=== PATIENT | male | born 1995 | race Caucasian/White ===

== ENCOUNTER 2016-04-11 23:40 | Emergency (ER) | payer OTHER ==
[2016-04-12] MEDS ORDERED: KETOROLAC 30 MG/ML VIAL (J1885) As Ordered ONE (00:48)
[2016-04-12] MEDS ORDERED: ONDANSETRON 4MG/2ML VIAL (J2405) As Ordered ONE (00:48)
[2016-04-12 01:31] LABS: BASO # 0.2 K/mm3 (0.0-0.2); BASO % 1.3 % (0.0-1.0); EOS # 0.3 K/mm3 (0.0-0.50); EOS % 2.1 % (0.0-3.0); LARGE UNSTAINED CELL # 0.2 K/mm3 (0.0-0.4); LARGE UNSTAINED CELL % 1.3 % (0.0-4.0); LYMPH # 2.4 K/mm3 (1.5-6.5); LYMPH % 16.8 % (24.0-44.0); MEAN CORPUSCULAR HEMOGLOBIN 29.9 pg (27.0-33.0); MEAN CORPUSCULAR HGB CONC 33.7 g/dl (32.0-36.5); MEAN CORPUSCULAR VOLUME 88.8 fl (80.0-96.0); MONO # 0.7 K/mm3 (0.0-0.8); MONO % 5.3 % (0.0-5.0); NEUTROPHILS # 9.8 K/mm3 (1.8-7.7); NEUTROPHILS % 73.3 % (36.0-66.0); PLATELET COUNT, AUTOMATED 276 k/mm3 (150-450); RED CELL DISTRIBUTION WIDTH 14.1 % (11.5-14.5); WHITE BLOOD COUNT 13.4 K/mm3 (4.0-10.0)
[2016-04-12 01:37] LABS: ALBUMIN 3.9 GM/DL (3.2-5.2); ALBUMIN/GLOBULIN RATIO 0.85 (1.00-1.93); ALKALINE PHOSPHATASE 92 U/L (45-117); ALT/SGPT 102 U/L (12-78); AMYLASE 56 U/L (25-115); ANION GAP 8 MEQ/L (8-16); AST/SGOT 41 U/L (15-37); BILIRUBIN,DIRECT 0.1 MG/DL (0.0-0.2); BILIRUBIN,TOTAL 0.5 MG/DL (0.2-1.0); BLOOD UREA NITROGEN 12 MG/DL (7-18); CALCIUM LEVEL 9.2 MG/DL (8.5-10.1); CARBON DIOXIDE LEVEL 29 MEQ/L (21-32); CHLORIDE LEVEL 100 MEQ/L (98-107); CREATININE FOR GFR 0.89 MG/DL (0.70-1.30); GLUCOSE, FASTING 92 MG/DL (70-105); POTASSIUM SERUM 3.9 MEQ/L (3.5-5.1); SODIUM LEVEL 137 MEQ/L (136-145); TOTAL PROTEIN 8.5 GM/DL (6.4-8.2)
--- NOTE | 2016-04-12 01:40 | REPUSA ---
CLINICAL HISTORY: Elevated liver enzymes. TECHNIQUE: Realtime sonographic images were obtained in multiple projections. COMMENTS: The liver is demonstrates increased echogenicity compatible with fatty infiltration. No discrete hepatic mass is seen. There is no intra or extrahepatic biliary ductal dilatation. CBD measures 2.9 mm. The gallbladder is physiologically distended without evidence of calculi. The gallbladder wall is not thickened and ther e is no pericholecystic fluid. There is no abdominal ascites. The right kidney measures 10.6x5.1x4.8 cm, free of hydronephrosis, calculi, cysts or masses. IMPRESSION: Fatty liver. No acute pathology. Thank you for your kind referral of this patient.
[2016-04-12] MEDS ORDERED: traMADol 50 MG TAB As Ordered ONE (02:05)
--- NOTE | 2016-04-12 02:12 | EDDOCDS ---
Physician Documentation [facility] Name: Michi Landers Age: 21 yrs Sex: Male : 1995 Arrival Date: 04/11/2016 Time: 23:40 Bed I5 / M5 Private MD: NO PRIMARY PHYSICIAN, . Disposition: 04/12/16 02:00 Discharged to Home/Self Care. Impression: Nausea with vomiting, unspecified, Upper abdominal pain, unspecified, Acute pharyngitis, unspecified. - Condition is Stable. - Discharge Instructions: Nausea and Vomiting, Pharyngitis, Abdominal Pain, Adult, [id number]. - Prescriptions for ZOFRAN ODT 4 mg Oral - dissolve 1 tablet by ORAL route 3-4 times daily As needed do not chew, do not swallow whole; 20 tablet. - Medication Reconciliation, Local Pharmacy Hours form. - Follow up: Emergency Department; When: As needed; Reason: Worsening of conditions. [facility]; When: Call to arrange an appointment; Reason: Recheck today's complaints, Continuance of care, To establish care. - Problem is new. - Symptoms have improved. Historical: - Allergies: No known drug Allergies; - Home Meds: 1. none - PMHx: none; - PSHx: none; - Social history: Smoking status: Patient states was never smoker of tobacco. No barriers to communication noted, The patient speaks fluent [place]. - Family history: Not pertinent. - : The pt / caregiver states he / she is not on anticoagulants. Home medication list is obtained from the patient. - Exposure Risk Screening:: None identified. Vital Signs: 04/11 23:42 BP 164 / 95; Pulse 77; Resp 18 S; Temp 98.7; Pulse Ox 100% on R/A; Weight 113.4 kg / dd6 250 lbs (R); Height 5 ft. 6 in. (167.64 cm) (R); 04/12 01:48 BP 134 / 84; Pulse 84; Resp 20; Temp 98.9(O); Pulse Ox 98% on R/A; Pain 0/10; tm5 04/11 23:42 Body Mass Index 40.35 (113.40 kg, 167.64 cm) dd6 MDM: 04/11 23:50 Strep Screen, Nursing ordered. dt4 04/12 00:27 GATS (NEGATIVE STREP SCREEN) Ordered. EDMS 00:37 IV Saline Lock ordered. dt4 00:37 NS 0.9% 1000 ml IV at bolus once ordered. dt4 00:37 Ondansetron 4 mg IVP once ordered. dt4 00:37 ketorolac 30 mg IVP once ordered. dt4 00:37 Undress patient appropriately for examination ordered. dt4 00:38 Amylase Ordered. EDMS 00:38 Basic Metabolic Profile Ordered. EDMS 00:38 CBC with Diff Ordered. EDMS 00:38 Lipase Ordered. EDMS 00:38 Liver Profile Ordered. EDMS 00:38 NOTHING BY MOUTH+DIET ordered. EDMS 00:39 US Abd Limited Ordered. EDMS 01:32 Financial registration complete. hs2 02:03 [facility] [place] Payment Agreement was scanned into [employer] and attached to record. hs2 02:04 traMADol 50 mg PO once ordered. dt4 Administered Medications: 01:04 Drug: NS 0.9% 1000 ml [sodium chloride 0.9 % intravenous solution] Route: IV; Rate: tm5 bolus; Site: right antecubital; 02:04 Follow up: IV Status: Completed infusion; IV Intake: 1000ml tm5 01:04 Drug: Ondansetron 4 mg Route: IVP; Site: right antecubital; tm5 01:30 Follow up: Response: Nausea is resolved; No Adverse Reaction tm5 01:05 Drug: ketorolac 30 mg [ketorolac 30 mg/mL (1 mL) injection solution (1 mL)] Route: IVP; tm5 Site: right antecubital; 01:30 Follow up: Response: No Adverse Reaction; Pain is decreased tm5 02:09 Drug: traMADol 50 mg [tramadol 50 mg tablet (1 tabs)] Route: PO; tm5 02:09 Follow up: Response: Confirmed pt not driving.; Pt left department before re-evaluation tm5 is appropriate Signatures: Dispatcher [employer] EDMS Chelsie Bloom PA-C PA-C dt4 Mavis FloresRN RN af2 Maryellen Tan, Reg Reg hs2 Joan Rodriguez RN RN tm5 The chart was reviewed and I authenticate all verbal orders and agree with the evaluation and treatment provided.Attachments: 02:03 [facility] Payment Agreement hs2 MTDD
--- NOTE | 2016-04-12 02:12 | EDDOCDS ---
Nurse's Notes [facility] Name: Michi Landers Age: 21 yrs Sex: Male : 1995 Arrival Date: 04/11/2016 Time: 23:40 Bed I5 / M5 Private MD: NO PRIMARY PHYSICIAN, . Diagnosis: Nausea with vomiting, unspecified;Upper abdominal pain, unspecified;Acute pharyngitis, unspecified Presentation: 04/11 23:43 Presenting complaint: Patient states: woke up with stomach ache and vomiting, +blood. af2 states he feels sore, throat is sore x 1 day. Adult Sepsis Screening: The patient does not have new or worsening altered mentation. Patient's respiratory rate is less than 22. Systolic blood pressure is greater than 100. Patient has a qSOFA score of 0- Negative Sepsis Screen. Suicide/Homicide risk assessment- the patient denies having any suicidal and/or homicidal ideations and does not present with any other emotional, behavioral or mental health complaints. Status: Patient is not a service agent or dependent. Transition of care: patient was not received from another setting of care. 23:43 Acuity: LISSETTE Level 4 af2 23:43 Method Of Arrival: Walkin/Carried/Asstd af2 23:45 Acuity level changed due to complexity of care. af2 23:45 Acuity: LISSETTE Level 3 af2 Triage Assessment: 23:44 General: Appears in no apparent distress, Behavior is cooperative. Pain: Location: af2 abdomen Pain currently is 7 out of 10 on a pain scale. Pt Declines HIV testing. GI: Reports lower abdominal pain, upper abd pain, nausea, vomiting. Derm: Skin is normal. Historical: - Allergies: No known drug Allergies; - Home Meds: 1. none - PMHx: none; - PSHx: none; - Social history: Smoking status: Patient states was never smoker of tobacco. No barriers to communication noted, The patient speaks fluent Romansh. - Family history: Not pertinent. - : The pt / caregiver states he / she is not on anticoagulants. Home medication list is obtained from the patient. - Exposure Risk Screening:: None identified. Screenin/11 01:05 Screening information is obtained from the patient. Fall risk: No risks identified. tm5 Assistance ADL's: requires no assistance with activities of daily living. Abuse/DV Screen: The patient / caregiver reports he/she is: not in a situation that causes fear, pain or injury. Nutritional screening: No deficits noted. Advance Directives: There is no active DNR order. home support is adequate. Assessment: 01:05 General: Appears in no apparent distress, Behavior is appropriate for age, cooperative. tm5 Pain: Location: right upper quadrant and left upper quadrant Pain currently is 6 out of 10 on a pain scale. Quality of pain is described as crampy. Neurological: Level of Consciousness is awake, alert, Oriented to person, place, time. Respiratory: Airway is patent Respiratory effort is even, unlabored, Respiratory pattern is regular, symmetrical, Breath sounds are clear bilaterally. GI: Abdomen is obese, Bowel sounds present X 4 quads. Abd is soft and non tender X 4 quads. Reports nausea, vomiting. : No deficits noted. Derm: Skin is pink, warm & dry. normal. 01:43 General: Appears in no apparent distress, comfortable, Behavior is appropriate for age, jmb cooperative. Neurological: Level of Consciousness is awake, alert, obeys commands, Oriented to person, place, time, Speech is normal, Facial symmetry appears normal, Facial symmetry: tongue is midline. Respiratory: Airway is patent Respiratory effort is even, unlabored, Respiratory pattern is regular, symmetrical. 02:09 Reassessment: Patient appears in no apparent distress at this time. Patient states tm5 feeling better. Patient states symptoms have improved. Vital Signs: 04/11 23:42 BP 164 / 95; Pulse 77; Resp 18 S; Temp 98.7; Pulse Ox 100% on R/A; Weight 113.4 kg (R); dd6 Height 5 ft. 6 in. (167.64 cm) (R); 04/12 01:48 BP 134 / 84; Pulse 84; Resp 20; Temp 98.9(O); Pulse Ox 98% on R/A; Pain 0/10; tm5 04/11 23:42 Body Mass Index 40.35 (113.40 kg, 167.64 cm) dd6 Vitals: 04/11 23:42 Log In Time: April 11, 2016 at 23:40. dd6 ED Course: 23:41 Patient visited by Zay Vo, GALLO. dd6 23:41 NO PRIMARY PHYSICIAN, . is Private Physician. dd6 23:41 Patient moved to Waiting dd6 23:42 Patient moved to Pre RCE dd6 23:44 Triage Initiated af2 23:45 Patient visited by Mavis Flores RN. af2 0111 00:08 Patient moved to Triage 2 af2 00:23 Chelsie Bloom [facility] dt4 00:23 Francesca Ashraf MD is Attending Physician. dt4 00:23 Patient visited by Chelsie Bloom PA-C. dt4 00:28 GATS (NEGATIVE STREP SCREEN) Sent. cjh 00:38 Patient moved to I5 / M5 cjh 00:58 Patient moved to Ultrasound dmg 01:03 Patient visited by Joan Rodriguez,DAMASO. tm5 01:03 Inserted saline lock: 20 gauge in right antecubital area and blood collected. The tm5 patient tolerated the procedure well. Labs drawn. (by ED staff). Sent per order to lab. 01:03 Amylase Sent. tm5 01:03 Basic Metabolic Profile Sent. tm5 01:03 CBC with Diff Sent. tm5 01:04 Lipase Sent. tm5 01:04 Liver Profile Sent. tm5 01:05 The patient / caregiver is instructed regarding the plan of care and ED course. tm5 01:15 Patient moved to I5 / M5 dmg 01:44 Patient visited by Blu Gonzalez,DAMASO. b 01:48 Patient visited by Joan Rodriguez,DAMASO. tm5 01:59 Patient name changed from Rubinsky\S\\S\Anshul\S\ to Rubinsky\S\ \S\Anshul. EDMS 02:00 [facility] is Referral Physician. dt4 02:03 [facility] Payment Agreement was scanned into [employer] and attached to record. hs2 02:09 Discontinued lock intact, bleeding controlled, pressure dressing applied, No tm5 redness/swelling at site. No procedures done that require assistance. Administered Medications: 01:04 Drug: NS 0.9% 1000 ml [sodium chloride 0.9 % intravenous solution] Route: IV; Rate: tm5 bolus; Site: right antecubital; 02:04 Follow up: IV Status: Completed infusion; IV Intake: 1000ml tm5 01:04 Drug: Ondansetron 4 mg Route: IVP; Site: right antecubital; tm5 01:30 Follow up: Response: Nausea is resolved; No Adverse Reaction tm5 01:05 Drug: ketorolac 30 mg [ketorolac 30 mg/mL (1 mL) injection solution (1 mL)] Route: IVP; tm5 Site: right antecubital; 01:30 Follow up: Response: No Adverse Reaction; Pain is decreased tm5 02:09 Drug: traMADol 50 mg [tramadol 50 mg tablet (1 tabs)] Route: PO; tm5 02:09 Follow up: Response: Confirmed pt not driving.; Pt left department before re-evaluation tm5 is appropriate Intake: 02:04 IV: 1000.00ml; Total: 1000.00ml. tm5 Order Results: Lab Order: Amylase; SPEC'04/12/16 01:01 Test: AMYLASE; Value: 56; Range: 25-115; Units: U/L; Status: F Lab Order: Basic Metabolic Profile; SPEC'04/12/16 01:01 Test: GLUCOSE, FASTING; Value: 92; Range: 70-105; Units: MG/DL; Status: F Test: BLOOD UREA NITROGEN; Value: 12; Range: 7-18; Units: MG/DL; Status: F Test: CREATININE FOR GFR; Value: 0.89; Range: 0.70-1.30; Units: MG/DL; Status: F Test: SODIUM LEVEL; Value: 137; Range: 136-145; Units: MEQ/L; Status: F Test: POTASSIUM SERUM; Value: 3.9; Range: 3.5-5.1; Units: MEQ/L; Status: F Test: CHLORIDE LEVEL; Value: 100; Range: 98-107; Units: MEQ/L; Status: F Test: CARBON DIOXIDE LEVEL; Value: 29; Range: 21-32; Units: MEQ/L; Status: F Test: ANION GAP; Value: 8; Range: 8-16; Units: MEQ/L; Status: F Test: CALCIUM LEVEL; Value: 9.2; Range: 8.5-10.1; Units: MG/DL; Status: F Lab Order: CBC with Diff; SPEC'04/12/16 01:01 Test: WHITE BLOOD COUNT; Value: 13.4; Range: 4.0-10.0; Abnormal: Above high normal; Units: K/mm3; Status: F Test: RED BLOOD COUNT; Value: 5.26; Range: 4.30-6.10; Units: M/mm3; Status: F Test: HEMOGLOBIN; Value: 15.7; Range: 14.0-18.0; Units: g/dl; Status: F Test: HEMATOCRIT; Value: 46.7; Range: 42.0-52.0; Units: %; Status: F Test: MEAN CORPUSCULAR VOLUME; Value: 88.8; Range: 80.0-96.0; Units: fl; Status: F Test: MEAN CORPUSCULAR HEMOGLOBIN; Value: 29.9; Range: 27.0-33.0; Units: pg; Status: F Test: MEAN CORPUSCULAR HGB CONC; Value: 33.7; Range: 32.0-36.5; Units: g/dl; Status: F Test: RED CELL DISTRIBUTION WIDTH; Value: 14.1; Range: 11.5-14.5; Units: %; Status: F Test: PLATELET COUNT, AUTOMATED; Value: 276; Range: 150-450; Units: k/mm3; Status: F Test: NEUTROPHILS %; Value: 73.3; Range: 36.0-66.0; Abnormal: Above high normal; Units: %; Status: F Test: LYMPH %; Value: 16.8; Range: 24.0-44.0; Abnormal: Below low normal; Units: %; Status: F Test: MONO %; Value: 5.3; Range: 0.0-5.0; Abnormal: Above high normal; Units: %; Status: F Test: EOS %; Value: 2.1; Range: 0.0-3.0; Units: %; Status: F Test: BASO %; Value: 1.3; Range: 0.0-1.0; Abnormal: Above high normal; Units: %; Status: F Test: LARGE UNSTAINED CELL %; Value: 1.3; Range: 0.0-4.0; Units: %; Status: F Test: NEUTROPHILS #; Value: 9.8; Range: 1.8-7.7; Abnormal: Above high normal; Units: K/mm3; Status: F Test: LYMPH #; Value: 2.4; Range: 1.5-6.5; Units: K/mm3; Status: F Test: MONO #; Value: 0.7; Range: 0.0-0.8; Units: K/mm3; Status: F Test: EOS #; Value: 0.3; Range: 0.0-0.50; Units: K/mm3; Status: F Test: BASO #; Value: 0.2; Range: 0.0-0.2; Units: K/mm3; Status: F Test: LARGE UNSTAINED CELL #; Value: 0.2; Range: 0.0-0.4; Units: K/mm3; Status: F Lab Order: Lipase; SPEC'M 04/12/16 01:01 Test: LIPASE; Value: 81; Range: 73-393; Units: U/L; Status: F Lab Order: Liver Profile; SPEC'M 04/12/16 01:01 Test: AST/SGOT; Value: 41; Range: 15-37; Abnormal: Above high normal; Units: U/L; Status: F Test: ALT/SGPT; Value: 102; Range: 12-78; Abnormal: Above high normal; Units: U/L; Status: F Test: ALKALINE PHOSPHATASE; Value: 92; Range: 45-117; Units: U/L; Status: F Test: BILIRUBIN,TOTAL; Value: 0.5; Range: 0.2-1.0; Units: MG/DL; Status: F Test: BILIRUBIN,DIRECT; Value: 0.1; Range: 0.0-0.2; Units: MG/DL; Status: F Test: TOTAL PROTEIN; Value: 8.5; Range: 6.4-8.2; Abnormal: Above high normal; Units: GM/DL; Status: F Test: ALBUMIN; Value: 3.9; Range: 3.2-5.2; Units: GM/DL; Status: F Test: ALBUMIN/GLOBULIN RATIO; Value: 0.85; Range: 1.00-1.93; Abnormal: Below low normal; Status: F Outcome: 02:00 Discharge ordered by Provider. dt4 02:09 Discharge Assessment: Patient awake, alert and oriented x 3. No cognitive and/or tm5 functional deficits noted. Patient verbalized understanding of disposition instructions. patient administered narcotics - no. The following High Risk Discharge criteria are identified: None. Discharged to home ambulatory, with parent. Condition: good Condition: stable Condition: improved. Discharge instructions given to patient, Instructed on discharge instructions, follow up and referral plans. medication usage, Demonstrated understanding of instructions, medications, Pt was receptive of discharge instructions/ teaching. Prescriptions given X 1. Ultrasound Study completed. Property :Personal belongings accompany Pt. 02:11 Patient left the ED. tm5 Signatures: Dispatcher [employer] EDBonnie De Leon Daniell, GALLO EDUCATION PROGRAM COORDINATOR dd6 Dayana Briones,RN RN Blu Balderas,RN RN Chelsie Vaughn, PA-C PA-C dt4 Mavis Flores,RN RN af2 Maryellen Tan, Reg Reg hs2 Joan Rodriguez,RN RN tm5 MTDD
--- NOTE | 2016-04-14 03:12 | EDDOCDS ---
Physician Documentation [facility] Name: Michi Landers Age: 21 yrs Sex: Male : 1995 Arrival Date: 04/11/2016 Time: 23:40 Bed I5 / M5 Private MD: NO PRIMARY PHYSICIAN, . Disposition: 04/12/16 02:00 Discharged to Home/Self Care. Impression: Nausea with vomiting, unspecified, Upper abdominal pain, unspecified, Acute pharyngitis, unspecified. - Condition is Stable. - Discharge Instructions: Nausea and Vomiting, Pharyngitis, Abdominal Pain, Adult, [id number]. - Prescriptions for ZOFRAN ODT 4 mg Oral - dissolve 1 tablet by ORAL route 3-4 times daily As needed do not chew, do not swallow whole; 20 tablet. - Medication Reconciliation, Local Pharmacy Hours form. - Follow up: Emergency Department; When: As needed; Reason: Worsening of conditions. [facility]; When: Call to arrange an appointment; Reason: Recheck today's complaints, Continuance of care, To establish care. - Problem is new. - Symptoms have improved. Historical: - Allergies: No known drug Allergies; - Home Meds: 1. none - PMHx: none; - PSHx: none; - Social history: Smoking status: Patient states was never smoker of tobacco. No barriers to communication noted, The patient speaks fluent Cameroonian. - Family history: Not pertinent. - : The pt / caregiver states he / she is not on anticoagulants. Home medication list is obtained from the patient. - Exposure Risk Screening:: None identified. Vital Signs: 04/11 23:42 BP 164 / 95; Pulse 77; Resp 18 S; Temp 98.7; Pulse Ox 100% on R/A; Weight 113.4 kg / dd6 250 lbs (R); Height 5 ft. 6 in. (167.64 cm) (R); 04/12 01:48 BP 134 / 84; Pulse 84; Resp 20; Temp 98.9(O); Pulse Ox 98% on R/A; Pain 0/10; tm5 04/11 23:42 Body Mass Index 40.35 (113.40 kg, 167.64 cm) dd6 MDM: 04/11 23:50 Strep Screen, Nursing ordered. dt4 04/12 00:27 GATS (NEGATIVE STREP SCREEN) Ordered. EDMS 00:37 IV Saline Lock ordered. dt4 00:37 NS 0.9% 1000 ml IV at bolus once ordered. dt4 00:37 Ondansetron 4 mg IVP once ordered. dt4 00:37 ketorolac 30 mg IVP once ordered. dt4 00:37 Undress patient appropriately for examination ordered. dt4 00:38 Amylase Ordered. EDMS 00:38 Basic Metabolic Profile Ordered. EDMS 00:38 CBC with Diff Ordered. EDMS 00:38 Lipase Ordered. EDMS 00:38 Liver Profile Ordered. EDMS 00:38 NOTHING BY MOUTH+DIET ordered. EDMS 00:39 US Abd Limited Ordered. EDMS 01:32 Financial registration complete. hs2 02:03 [facility] Payment Agreement was scanned into [employer] and attached to record. hs2 02:04 traMADol 50 mg PO once ordered. dt4 10:11 T-Sheet-- Draft Copy was scanned into [employer] and attached to record. gb 10:11 Radiology Report was scanned into [employer] and attached to record. gb Administered Medications: 01:04 Drug: NS 0.9% 1000 ml [sodium chloride 0.9 % intravenous solution] Route: IV; Rate: tm5 bolus; Site: right antecubital; 02:04 Follow up: IV Status: Completed infusion; IV Intake: 1000ml tm5 01:04 Drug: Ondansetron 4 mg Route: IVP; Site: right antecubital; tm5 01:30 Follow up: Response: Nausea is resolved; No Adverse Reaction tm5 01:05 Drug: ketorolac 30 mg [ketorolac 30 mg/mL (1 mL) injection solution (1 mL)] Route: IVP; tm5 Site: right antecubital; 01:30 Follow up: Response: No Adverse Reaction; Pain is decreased tm5 02:09 Drug: traMADol 50 mg [tramadol 50 mg tablet (1 tabs)] Route: PO; tm5 02:09 Follow up: Response: Confirmed pt not driving.; Pt left department before re-evaluation tm5 is appropriate Signatures: Dispatcher [employer] EDMS Veronica Conroy, Reg Reg gb Chelsie Bloom, PAFawadC PA-C dt4 Mavis Flores RN RN af2 Maryellen Tan, Reg Reg hs2 Joan RodriguezRN RN tm5 The chart was reviewed and I authenticate all verbal orders and agree with the evaluation and treatment provided.Attachments: 02:03 [facility] Payment Agreement hs2 10:11 T-Sheet-- Draft Copy gb Chart Complete MTDD
--- NOTE | 2016-04-14 03:12 | EDDOCDS ---
Nurse's Notes [facility] Name: Michi Landers Age: 21 yrs Sex: Male : 1995 Arrival Date: 04/11/2016 Time: 23:40 Bed I5 / M5 Private MD: NO PRIMARY PHYSICIAN, . Diagnosis: Nausea with vomiting, unspecified;Upper abdominal pain, unspecified;Acute pharyngitis, unspecified Presentation: 04/11 23:43 Presenting complaint: Patient states: woke up with stomach ache and vomiting, +blood. af2 states he feels sore, throat is sore x 1 day. Adult Sepsis Screening: The patient does not have new or worsening altered mentation. Patient's respiratory rate is less than 22. Systolic blood pressure is greater than 100. Patient has a qSOFA score of 0- Negative Sepsis Screen. Suicide/Homicide risk assessment- the patient denies having any suicidal and/or homicidal ideations and does not present with any other emotional, behavioral or mental health complaints. Status: Patient is not a account services representative or dependent. Transition of care: patient was not received from another setting of care. 23:43 Acuity: LISSETTE Level 4 af2 23:43 Method Of Arrival: Walkin/Carried/Asstd af2 23:45 Acuity level changed due to complexity of care. af2 23:45 Acuity: LISSETTE Level 3 af2 Triage Assessment: 23:44 General: Appears in no apparent distress, Behavior is cooperative. Pain: Location: af2 abdomen Pain currently is 7 out of 10 on a pain scale. Pt Declines HIV testing. GI: Reports lower abdominal pain, upper abd pain, nausea, vomiting. Derm: Skin is normal. Historical: - Allergies: No known drug Allergies; - Home Meds: 1. none - PMHx: none; - PSHx: none; - Social history: Smoking status: Patient states was never smoker of tobacco. No barriers to communication noted, The patient speaks fluent Sammarinese. - Family history: Not pertinent. - : The pt / caregiver states he / she is not on anticoagulants. Home medication list is obtained from the patient. - Exposure Risk Screening:: None identified. Screenin/11 01:05 Screening information is obtained from the patient. Fall risk: No risks identified. tm5 Assistance ADL's: requires no assistance with activities of daily living. Abuse/DV Screen: The patient / caregiver reports he/she is: not in a situation that causes fear, pain or injury. Nutritional screening: No deficits noted. Advance Directives: There is no active DNR order. home support is adequate. Assessment: 01:05 General: Appears in no apparent distress, Behavior is appropriate for age, cooperative. tm5 Pain: Location: right upper quadrant and left upper quadrant Pain currently is 6 out of 10 on a pain scale. Quality of pain is described as crampy. Neurological: Level of Consciousness is awake, alert, Oriented to person, place, time. Respiratory: Airway is patent Respiratory effort is even, unlabored, Respiratory pattern is regular, symmetrical, Breath sounds are clear bilaterally. GI: Abdomen is obese, Bowel sounds present X 4 quads. Abd is soft and non tender X 4 quads. Reports nausea, vomiting. : No deficits noted. Derm: Skin is pink, warm & dry. normal. 01:43 General: Appears in no apparent distress, comfortable, Behavior is appropriate for age, jmb cooperative. Neurological: Level of Consciousness is awake, alert, obeys commands, Oriented to person, place, time, Speech is normal, Facial symmetry appears normal, Facial symmetry: tongue is midline. Respiratory: Airway is patent Respiratory effort is even, unlabored, Respiratory pattern is regular, symmetrical. 02:09 Reassessment: Patient appears in no apparent distress at this time. Patient states tm5 feeling better. Patient states symptoms have improved. Vital Signs: 04/11 23:42 BP 164 / 95; Pulse 77; Resp 18 S; Temp 98.7; Pulse Ox 100% on R/A; Weight 113.4 kg (R); dd6 Height 5 ft. 6 in. (167.64 cm) (R); 04/12 01:48 BP 134 / 84; Pulse 84; Resp 20; Temp 98.9(O); Pulse Ox 98% on R/A; Pain 0/10; tm5 04/11 23:42 Body Mass Index 40.35 (113.40 kg, 167.64 cm) dd6 Vitals: 04/11 23:42 Log In Time: April 11, 2016 at 23:40. dd6 ED Course: 23:41 Patient visited by Zay Vo, GALLO. dd6 23:41 NO PRIMARY PHYSICIAN, . is Private Physician. dd6 23:41 Patient moved to Waiting dd6 23:42 Patient moved to Pre RCE dd6 23:44 Triage Initiated af2 23:45 Patient visited by Mavis Flores RN. af2 0111 00:08 Patient moved to Triage 2 af2 00:23 Chelsie Bloom PA-C is PHCP. dt4 00:23 Francesca Ashraf MD is Attending Physician. dt4 00:23 Patient visited by Chelsie Bloom PA-C. dt4 00:28 GATS (NEGATIVE STREP SCREEN) Sent. cjh 00:38 Patient moved to I5 / M5 cjh 00:58 Patient moved to Ultrasound dmg 01:03 Patient visited by Joan Rodriguez,DAMASO. tm5 01:03 Inserted saline lock: 20 gauge in right antecubital area and blood collected. The tm5 patient tolerated the procedure well. Labs drawn. (by ED staff). Sent per order to lab. 01:03 Amylase Sent. tm5 01:03 Basic Metabolic Profile Sent. tm5 01:03 CBC with Diff Sent. tm5 01:04 Lipase Sent. tm5 01:04 Liver Profile Sent. tm5 01:05 The patient / caregiver is instructed regarding the plan of care and ED course. tm5 01:15 Patient moved to I5 / M5 dmg 01:44 Patient visited by Blu Gonzalez,DAMASO. jmb 01:48 Patient visited by Joan Rodriguez,DAMASO. tm5 01:59 Patient name changed from Rubinsky\S\\S\Anshul\S\ to Rubinsky\S\ \S\Anshul. EDMS 02:00 [facility] is Referral Physician. dt4 02:03 [facility] Payment Agreement was scanned into [employer] and attached to record. hs2 02:09 Discontinued lock intact, bleeding controlled, pressure dressing applied, No tm5 redness/swelling at site. No procedures done that require assistance. 02:24 US Abd Limited Returned. EDMS 10:11 T-Sheet-- Draft Copy was scanned into [employer] and attached to record. gb 10:11 Radiology Report was scanned into [employer] and attached to record. gb Administered Medications: 01:04 Drug: NS 0.9% 1000 ml [sodium chloride 0.9 % intravenous solution] Route: IV; Rate: tm5 bolus; Site: right antecubital; 02:04 Follow up: IV Status: Completed infusion; IV Intake: 1000ml tm5 01:04 Drug: Ondansetron 4 mg Route: IVP; Site: right antecubital; tm5 01:30 Follow up: Response: Nausea is resolved; No Adverse Reaction tm5 01:05 Drug: ketorolac 30 mg [ketorolac 30 mg/mL (1 mL) injection solution (1 mL)] Route: IVP; tm5 Site: right antecubital; 01:30 Follow up: Response: No Adverse Reaction; Pain is decreased tm5 02:09 Drug: traMADol 50 mg [tramadol 50 mg tablet (1 tabs)] Route: PO; tm5 02:09 Follow up: Response: Confirmed pt not driving.; Pt left department before re-evaluation tm5 is appropriate Intake: 02:04 IV: 1000.00ml; Total: 1000.00ml. tm5 Order Results: Lab Order: GATS (NEGATIVE STREP SCREEN); SPEC'M 04/12/16 00:28 Test: GATS CULTURE (NEG STREP SCR); Value: GATS RESULT NEGATIVE FOR STREP PYOGENES (GROUP A); Status: F Lab Order: Amylase; SPEC'M 04/12/16 01:01 Test: AMYLASE; Value: 56; Range: 25-115; Units: U/L; Status: F Lab Order: Basic Metabolic Profile; SPEC'M 04/12/16 01:01 Test: GLUCOSE, FASTING; Value: 92; Range: 70-105; Units: MG/DL; Status: F Test: BLOOD UREA NITROGEN; Value: 12; Range: 7-18; Units: MG/DL; Status: F Test: CREATININE FOR GFR; Value: 0.89; Range: 0.70-1.30; Units: MG/DL; Status: F Test: SODIUM LEVEL; Value: 137; Range: 136-145; Units: MEQ/L; Status: F Test: POTASSIUM SERUM; Value: 3.9; Range: 3.5-5.1; Units: MEQ/L; Status: F Test: CHLORIDE LEVEL; Value: 100; Range: 98-107; Units: MEQ/L; Status: F Test: CARBON DIOXIDE LEVEL; Value: 29; Range: 21-32; Units: MEQ/L; Status: F Test: ANION GAP; Value: 8; Range: 8-16; Units: MEQ/L; Status: F Test: CALCIUM LEVEL; Value: 9.2; Range: 8.5-10.1; Units: MG/DL; Status: F Lab Order: CBC with Diff; SPEC'M 04/12/16 01:01 Test: WHITE BLOOD COUNT; Value: 13.4; Range: 4.0-10.0; Abnormal: Above high normal; Units: K/mm3; Status: F Test: RED BLOOD COUNT; Value: 5.26; Range: 4.30-6.10; Units: M/mm3; Status: F Test: HEMOGLOBIN; Value: 15.7; Range: 14.0-18.0; Units: g/dl; Status: F Test: HEMATOCRIT; Value: 46.7; Range: 42.0-52.0; Units: %; Status: F Test: MEAN CORPUSCULAR VOLUME; Value: 88.8; Range: 80.0-96.0; Units: fl; Status: F Test: MEAN CORPUSCULAR HEMOGLOBIN; Value: 29.9; Range: 27.0-33.0; Units: pg; Status: F Test: MEAN CORPUSCULAR HGB CONC; Value: 33.7; Range: 32.0-36.5; Units: g/dl; Status: F Test: RED CELL DISTRIBUTION WIDTH; Value: 14.1; Range: 11.5-14.5; Units: %; Status: F Test: PLATELET COUNT, AUTOMATED; Value: 276; Range: 150-450; Units: k/mm3; Status: F Test: NEUTROPHILS %; Value: 73.3; Range: 36.0-66.0; Abnormal: Above high normal; Units: %; Status: F Test: LYMPH %; Value: 16.8; Range: 24.0-44.0; Abnormal: Below low normal; Units: %; Status: F Test: MONO %; Value: 5.3; Range: 0.0-5.0; Abnormal: Above high normal; Units: %; Status: F Test: EOS %; Value: 2.1; Range: 0.0-3.0; Units: %; Status: F Test: BASO %; Value: 1.3; Range: 0.0-1.0; Abnormal: Above high normal; Units: %; Status: F Test: LARGE UNSTAINED CELL %; Value: 1.3; Range: 0.0-4.0; Units: %; Status: F Test: NEUTROPHILS #; Value: 9.8; Range: 1.8-7.7; Abnormal: Above high normal; Units: K/mm3; Status: F Test: LYMPH #; Value: 2.4; Range: 1.5-6.5; Units: K/mm3; Status: F Test: MONO #; Value: 0.7; Range: 0.0-0.8; Units: K/mm3; Status: F Test: EOS #; Value: 0.3; Range: 0.0-0.50; Units: K/mm3; Status: F Test: BASO #; Value: 0.2; Range: 0.0-0.2; Units: K/mm3; Status: F Test: LARGE UNSTAINED CELL #; Value: 0.2; Range: 0.0-0.4; Units: K/mm3; Status: F Lab Order: Lipase; SPEC'M 04/12/16 01:01 Test: LIPASE; Value: 81; Range: 73-393; Units: U/L; Status: F Lab Order: Liver Profile; SPEC'M 04/12/16 01:01 Test: AST/SGOT; Value: 41; Range: 15-37; Abnormal: Above high normal; Units: U/L; Status: F Test: ALT/SGPT; Value: 102; Range: 12-78; Abnormal: Above high normal; Units: U/L; Status: F Test: ALKALINE PHOSPHATASE; Value: 92; Range: 45-117; Units: U/L; Status: F Test: BILIRUBIN,TOTAL; Value: 0.5; Range: 0.2-1.0; Units: MG/DL; Status: F Test: BILIRUBIN,DIRECT; Value: 0.1; Range: 0.0-0.2; Units: MG/DL; Status: F Test: TOTAL PROTEIN; Value: 8.5; Range: 6.4-8.2; Abnormal: Above high normal; Units: GM/DL; Status: F Test: ALBUMIN; Value: 3.9; Range: 3.2-5.2; Units: GM/DL; Status: F Test: ALBUMIN/GLOBULIN RATIO; Value: 0.85; Range: 1.00-1.93; Abnormal: Below low normal; Status: F Radiology Order: US Abd Limited Test: US Abd Limited REASON FOR EXAMINATION: N/V UPPER ABD PAIN;Biliary Colic/RUQ pain; ; CLINICAL HISTORY: Elevated liver enzymes.; TECHNIQUE: Realtime sonographic images were obtained in multiple projections.; COMMENTS:; The liver is demonstrates increased echogenicity compatible with fatty infiltration. No discrete; hepatic mass is seen.; There is no intra or extrahepatic biliary ductal dilatation. CBD measures 2.9 mm. The gallbladder is; ; physiologically distended without evidence of calculi. The gallbladder wall is not thickened and ther; e; is no pericholecystic fluid.; There is no abdominal ascites.; The right kidney measures 10.6x5.1x4.8 cm, free of hydronephrosis, calculi, cysts or masses.; IMPRESSION:; Fatty liver. No acute pathology.; Thank you for your kind referral of this patient.; ; Outcome: 02:00 Discharge ordered by Provider. dt4 02:09 Discharge Assessment: Patient awake, alert and oriented x 3. No cognitive and/or tm5 functional deficits noted. Patient verbalized understanding of disposition instructions. patient administered narcotics - no. The following High Risk Discharge criteria are identified: None. Discharged to home ambulatory, with parent. Condition: good Condition: stable Condition: improved. Discharge instructions given to patient, Instructed on discharge instructions, follow up and referral plans. medication usage, Demonstrated understanding of instructions, medications, Pt was receptive of discharge instructions/ teaching. Prescriptions given X 1. Ultrasound Study completed. Property :Personal belongings accompany Pt. 02:11 Patient left the ED. tm5 Signatures: Dispatcher [employer] EDSC Bonnie Gregorio Veronica Ornelas, Reg Reg gb Zay Vo, TOP AND SEAT COVER FITTER TOP AND SEAT COVER FITTER dd6 Dayana BrionesRN RN Blu Balderas RN RN Chelsie Vaughn, PA-C PA-C dt4 Mavis Flores RN RN af2 Maryellen Tan, Reg Reg hs2 Matice,Joan,RN RN tm5 Chart Complete MTDD
--- NOTE | 2016-04-14 03:13 | EDDOCDS ---
Physician Documentation [facility] Name: Michi Landers Age: 21 yrs Sex: Male : 1995 Arrival Date: 04/11/2016 Time: 23:40 Bed I5 / M5 Private MD: NO PRIMARY PHYSICIAN, . Disposition: 04/12/16 02:00 Discharged to Home/Self Care. Impression: Nausea with vomiting, unspecified, Upper abdominal pain, unspecified, Acute pharyngitis, unspecified. - Condition is Stable. - Discharge Instructions: Nausea and Vomiting, Pharyngitis, Abdominal Pain, Adult, [id number]. - Prescriptions for ZOFRAN ODT 4 mg Oral - dissolve 1 tablet by ORAL route 3-4 times daily As needed do not chew, do not swallow whole; 20 tablet. - Medication Reconciliation, Local Pharmacy Hours form. - Follow up: Emergency Department; When: As needed; Reason: Worsening of conditions. [facility]: [facility]; When: Call to arrange an appointment; Reason: Recheck today's complaints, Continuance of care, To establish care. - Problem is new. - Symptoms have improved. Historical: - Allergies: No known drug Allergies; - Home Meds: 1. none - PMHx: none; - PSHx: none; - Social history: Smoking status: Patient states was never smoker of tobacco. No barriers to communication noted, The patient speaks fluent Burkinan. - Family history: Not pertinent. - : The pt / caregiver states he / she is not on anticoagulants. Home medication list is obtained from the patient. - Exposure Risk Screening:: None identified. Vital Signs: 04/11 23:42 BP 164 / 95; Pulse 77; Resp 18 S; Temp 98.7; Pulse Ox 100% on R/A; Weight 113.4 kg / dd6 250 lbs (R); Height 5 ft. 6 in. (167.64 cm) (R); 04/12 01:48 BP 134 / 84; Pulse 84; Resp 20; Temp 98.9(O); Pulse Ox 98% on R/A; Pain 0/10; tm5 04/11 23:42 Body Mass Index 40.35 (113.40 kg, 167.64 cm) dd6 MDM: 04/11 23:50 Strep Screen, Nursing ordered. dt4 04/12 00:27 GATS (NEGATIVE STREP SCREEN) Ordered. EDMS 00:37 IV Saline Lock ordered. dt4 00:37 NS 0.9% 1000 ml IV at bolus once ordered. dt4 00:37 Ondansetron 4 mg IVP once ordered. dt4 00:37 ketorolac 30 mg IVP once ordered. dt4 00:37 Undress patient appropriately for examination ordered. dt4 00:38 Amylase Ordered. EDMS 00:38 Basic Metabolic Profile Ordered. EDMS 00:38 CBC with Diff Ordered. EDMS 00:38 Lipase Ordered. EDMS 00:38 Liver Profile Ordered. EDMS 00:38 NOTHING BY MOUTH+DIET ordered. EDMS 00:39 US Abd Limited Ordered. EDMS 01:32 Financial registration complete. hs2 02:03 [facility] Payment Agreement was scanned into [employer] and attached to record. hs2 02:04 traMADol 50 mg PO once ordered. dt4 10:11 T-Sheet-- Draft Copy was scanned into [employer] and attached to record. gb 10:11 Radiology Report was scanned into [employer] and attached to record. gb Administered Medications: 01:04 Drug: NS 0.9% 1000 ml [sodium chloride 0.9 % intravenous solution] Route: IV; Rate: tm5 bolus; Site: right antecubital; 02:04 Follow up: IV Status: Completed infusion; IV Intake: 1000ml tm5 01:04 Drug: Ondansetron 4 mg Route: IVP; Site: right antecubital; tm5 01:30 Follow up: Response: Nausea is resolved; No Adverse Reaction tm5 01:05 Drug: ketorolac 30 mg [ketorolac 30 mg/mL (1 mL) injection solution (1 mL)] Route: IVP; tm5 Site: right antecubital; 01:30 Follow up: Response: No Adverse Reaction; Pain is decreased tm5 02:09 Drug: traMADol 50 mg [tramadol 50 mg tablet (1 tabs)] Route: PO; tm5 02:09 Follow up: Response: Confirmed pt not driving.; Pt left department before re-evaluation tm5 is appropriate Signatures: Dispatcher [employer] EDMS Veronica Conroy, Reg Reg gb Chelsie Bloom, PAFawadC PA-C dt4 Mavis Flores RN RN af2 Maryellen Tan, Reg Reg hs2 Joan RodriguezRN RN tm5 The chart was reviewed and I authenticate all verbal orders and agree with the evaluation and treatment provided.Attachments: 02:03 COUNT INCLUDES THE [facility] Payment Agreement hs2 10:11 T-Sheet-- Draft Copy gb Chart Complete MTDD
== END 2016-04-12 02:11 | disposition home or self-care (01) ==
LOC: M ED 23:40
DX: R10.10 Upper abdominal pain, unspecified (principal); R11.2 Nausea with vomiting, unspecified; J02.9 Acute pharyngitis, unspecified
CPT/HCPCS: 36415; 76705; 80048; 80076; 82150; 83690; 85025; 96361; 96374; 96375; 99284; J1885; J2405

== ENCOUNTER 2016-05-12 22:25 | Emergency (ER) | payer OTHER ==
[2016-05-12] MEDS ORDERED: METHOCARBAMOL 500 MG TAB As Ordered ONE (23:34)
[2016-05-12] MEDS ORDERED: IBUPROFEN 600 MG TAB As Ordered ONE (23:34)
--- NOTE | 2016-05-12 23:42 | EDDOCDS ---
Physician Documentation [facility] Name: Michi Landers Age: 21 yrs Sex: Male : 1995 Arrival Date: 05/12/2016 Time: 22:25 Bed Triage 1 Private MD: NO PRIMARY PHYSICIAN, . Disposition: 05/12/16 23:37 Discharged to Home/Self Care. Impression: Strain of muscle and tendon of thorax - RIGHT. - Condition is Stable. - Discharge Instructions: Muscle Strain. - Prescriptions for Ibuprofen 600 mg Oral Tablet - take 1 tablet by ORAL route every 6 hours As needed take with food; 30 tablet. Robaxin 500 mg Oral Tablet - take 2 tablet by ORAL route every 6 hours As needed; 40 tablet. - Medication Reconciliation, Local Pharmacy Hours form. - Follow up: [facility]; When: 2 - 3 days; Reason: Recheck today's complaints, Continuance of care. - Problem is new. - Symptoms have improved. - Notes: USE MEDICATIONS INSTRUCTED, FOLLOW UP WITH THE [facility], RETURN TO THE ER IF THE SYMPTOMS WORSEN OR BECOME CONCERNING Historical: - Allergies: no known allergies; - Home Meds: 1. none - PMHx: Asthma; - PSHx: none; - Social history: Smoking status: Patient uses tobacco products, current every day smoker. Patient/guardian denies using alcohol, street drugs, No barriers to communication noted, The patient speaks fluent Divehi, Speaks appropriately for age. - Family history: Not pertinent. - : The pt / caregiver states he / she is not on anticoagulants. Home medication list is obtained from the patient. - Exposure Risk Screening:: None identified. Vital Signs: 05/12 22:27 BP 152 / 76; Pulse 105; Resp 16; Temp 99.7(O); Pulse Ox 96% on R/A; Weight 113.4 kg / sew 250 lbs; Height 5 ft. 6 in. (167.64 cm); Pain 5/10; 23:34 BP 142 / 84; Pulse 91; Resp 18; Temp 99.2; Pulse Ox 99% on R/A; mcp 22:27 Body Mass Index 40.35 (113.40 kg, 167.64 cm) sew MDM: 23:31 Methocarbamol 1 grams PO once ordered. ck7 23:31 Ibuprofen 600 mg PO once ordered. ck7 23:33 Financial registration complete. pm4 Administered Medications: 23:36 Drug: Methocarbamol 1 grams [methocarbamol 500 mg tablet (2 tabs)] Route: PO; nn1 23:36 Drug: Ibuprofen 600 mg [ibuprofen 600 mg tablet (1 tabs)] Route: PO; nn1 Signatures: Lucinda Rudolph RN RN Peter Rajput, ILAN-C RPA-Cck7 Danyelle Frances RN RN ttb Cong Matta, Reg Reg pm4 Akosua Butler RN nn1 MTDD
--- NOTE | 2016-05-12 23:43 | EDDOCDS ---
Nurse's Notes [facility] Name: Michi Landers Age: 21 yrs Sex: Male : 1995 Arrival Date: 05/12/2016 Time: 22:25 Bed Triage 1 Private MD: NO PRIMARY PHYSICIAN, . Diagnosis: Strain of muscle and tendon of thorax-RIGHT Presentation: 05/12 22:29 Presenting complaint: Patient states: right mid back and flank pain x5 days. Sometimes ttb radiates to upper back with breathing. Denies injury. No GI/ symptoms. Right sided ear pain as well. Occasional cough. Acute neurological deficits are not present. Mechanism of Injury: No Mechanism of Injury. Adult Sepsis Screening: The patient does not have new or worsening altered mentation. Patient's respiratory rate is less than 22. Systolic blood pressure is greater than 100. Patient has a qSOFA score of 0- Negative Sepsis Screen. Suicide/Homicide risk assessment- the patient denies having any suicidal and/or homicidal ideations and does not present with any other emotional, behavioral or mental health complaints. Status: Patient is not a service car driver or dependent. Transition of care: patient was not received from another setting of care. 22:29 Acuity: LISSETTE Level 4 ttb 22:29 Method Of Arrival: Walkin/Carried/Asstd ttb Triage Assessment: 22:31 General: Appears in no apparent distress, well nourished, well groomed. Pain: Location: ttb right mid back/flank. HIV screening NA for this visit Offered previously. Neurological: Level of Consciousness is awake, alert. Cardiovascular: Chest pain is denied. Respiratory: Airway is patent Respiratory effort is even, unlabored, Reports pain with cough pain with respiration the patient has mild shortness of breath Denies shortness of breath labored breathing. GI: Denies nausea, vomiting, pain. : Denies burning with urination, urinary frequency, urgency. Derm: Skin is normal. Musculoskeletal: Range of motion intact in all extremities. Historical: - Allergies: no known allergies; - Home Meds: 1. none - PMHx: Asthma; - PSHx: none; - Social history: Smoking status: Patient uses tobacco products, current every day smoker. Patient/guardian denies using alcohol, street drugs, No barriers to communication noted, The patient speaks fluent Uzbek, Speaks appropriately for age. - Family history: Not pertinent. - : The pt / caregiver states he / she is not on anticoagulants. Home medication list is obtained from the patient. - Exposure Risk Screening:: None identified. Screenin:41 Screening information is obtained from the patient. Fall risk: No risks identified. mcp Assistance ADL's: requires no assistance with activities of daily living. Abuse/DV Screen: The patient / caregiver reports he/she is: not in a situation that causes fear, pain or injury. Nutritional screening: No deficits noted. Advance Directives: Currently, there is no health care proxy. There is no active DNR order. There is no Power of Clinician Oncology. home support is adequate. Assessment: 23:36 General: Appears in no apparent distress, comfortable, Behavior is appropriate for age, nn1 cooperative. Respiratory: Airway is patent Respiratory effort is even, unlabored, Respiratory pattern is regular, symmetrical. Musculoskeletal: Circulation, motion, and sensation intact Capillary refill < 3 seconds Range of motion intact in all extremities. Vital Signs: 22:27 BP 152 / 76; Pulse 105; Resp 16; Temp 99.7(O); Pulse Ox 96% on R/A; Weight 113.4 kg; sew Height 5 ft. 6 in. (167.64 cm); Pain 5/10; 23:34 BP 142 / 84; Pulse 91; Resp 18; Temp 99.2; Pulse Ox 99% on R/A; mcp 22:27 Body Mass Index 40.35 (113.40 kg, 167.64 cm) [facility] Vitals: 22:27 Log In Time: May 12, 2016 at 22:25. [facility] ED Course: 22:27 Patient visited by Chani Henson. sew 22:27 NO PRIMARY PHYSICIAN, . is Private Physician. sew 22:27 Patient moved to Waiting sew 22:28 Patient visited by Chani Henson. sew 22:28 Patient moved to Pre RCE sew 22:31 Triage Initiated ttb 23:08 Peter Hoang RPA-C is PHCP. ck7 23:08 Hao Sheriff DO is Attending Physician. ck7 23:08 Patient moved to Triage 1 mcp 23:16 Patient visited by Peter Hoang RPA-C. ck7 23:36 [facility] is Referral Physician. ck7 23:41 The patient / caregiver is instructed regarding the plan of care and ED course. Patient mcp has correct armband on for positive identification. Bed in low position. Call light in reach. 23:41 No IV's were initiated during this patient's visit. No procedures done that require mcp assistance. Administered Medications: 23:36 Drug: Methocarbamol 1 grams [methocarbamol 500 mg tablet (2 tabs)] Route: PO; nn1 23:36 Drug: Ibuprofen 600 mg [ibuprofen 600 mg tablet (1 tabs)] Route: PO; nn1 Order Results: There are currently no results for this order. Outcome: 23:37 Discharge ordered by Provider. ck7 23:41 Discharge Assessment: patient administered narcotics - no. The following High Risk mcp Discharge criteria are identified: None. Discharged to home ambulatory. Condition: stable. Discharge instructions given to patient, Instructed on discharge instructions, follow up and referral plans. medication usage, Demonstrated understanding of instructions, medications, Pt was receptive of discharge instructions/ teaching. Prescriptions given X 2. No special radiology studies were completed. Property sent home with patient. 23:42 Patient left the ED. mcp Signatures: Lucinda Rudolph, RN RN Peter Rajput, RPA-C RPA-Cck7 Chani Henson Teresa, RN RN Akosua NelsonRN RN nn1 MTDD
--- NOTE | 2016-05-15 00:42 | EDDOCDS ---
Physician Documentation [facility] Name: Michi Landers Age: 21 yrs Sex: Male : 1995 Arrival Date: 05/12/2016 Time: 22:25 Bed Triage 1 Private MD: NO PRIMARY PHYSICIAN, . Disposition: 05/12/16 23:37 Discharged to Home/Self Care. Impression: Strain of muscle and tendon of thorax - RIGHT. - Condition is Stable. - Discharge Instructions: Muscle Strain. - Prescriptions for Ibuprofen 600 mg Oral Tablet - take 1 tablet by ORAL route every 6 hours As needed take with food; 30 tablet. Robaxin 500 mg Oral Tablet - take 2 tablet by ORAL route every 6 hours As needed; 40 tablet. - Medication Reconciliation, Local Pharmacy Hours form. - [facility] up: [facility]; When: 2 - 3 days; Reason: Recheck today's complaints, Continuance of care. - Problem is new. - Symptoms have improved. - Notes: USE MEDICATIONS INSTRUCTED, FOLLOW UP WITH THE GRADUATE MEDICAL PROGRAM, RETURN TO THE ER IF THE SYMPTOMS WORSEN OR BECOME CONCERNING Historical: - Allergies: no known allergies; - Home Meds: 1. none - PMHx: Asthma; - PSHx: none; - Social history: Smoking status: Patient uses tobacco products, current every day smoker. Patient/guardian denies using alcohol, street drugs, No barriers to communication noted, The patient speaks fluent Ukrainian, Speaks appropriately for age. - Family history: Not pertinent. - : The pt / caregiver states he / she is not on anticoagulants. Home medication list is obtained from the patient. - Exposure Risk Screening:: None identified. Vital Signs: 05/12 22:27 BP 152 / 76; Pulse 105; Resp 16; Temp 99.7(O); Pulse Ox 96% on R/A; Weight 113.4 kg / sew 250 lbs; Height 5 ft. 6 in. (167.64 cm); Pain 5/10; 23:34 BP 142 / 84; Pulse 91; Resp 18; Temp 99.2; Pulse Ox 99% on R/A; mcp 22:27 Body Mass Index 40.35 (113.40 kg, 167.64 cm) sew MDM: 23:31 Methocarbamol 1 grams PO once ordered. ck7 23:31 Ibuprofen 600 mg PO once ordered. ck7 23:33 Financial registration complete. pm4 05/13 00:03 [place] [place] Agreement was scanned into [employer] and attached to record. pm4 11:00 T-Sheet-- Draft Copy was scanned into [employer] and attached to record. gb Administered Medications: 05/12 23:36 Drug: Methocarbamol 1 grams [methocarbamol 500 mg tablet (2 tabs)] Route: PO; nn1 23:36 Drug: Ibuprofen 600 mg [ibuprofen 600 mg tablet (1 tabs)] Route: PO; nn1 Signatures: Lucidna Rudolph, RN RN mcp Veronica Conroy, Reg Reg gb Peter Hoang, RPA-C RPA-Cck7 Danyelle Frances RN RN ttb Cong Matta, Reg Reg pm4 Akosua Butler RN nn1 The chart was reviewed and I authenticate all verbal orders and agree with the evaluation and treatment provided.Attachments: 05/13 00:03 [facility] [place] Agreement pm4 11:00 T-Sheet-- Draft Copy gb Chart Complete MTDD
--- NOTE | 2016-05-15 00:43 | EDDOCDS ---
Nurse's Notes [facility] Name: Michi Landers Age: 21 yrs Sex: Male : 1995 Arrival Date: 05/12/2016 Time: 22:25 Bed Triage 1 Private MD: NO PRIMARY PHYSICIAN, . Diagnosis: Strain of muscle and tendon of thorax-RIGHT Presentation: 05/12 22:29 Presenting complaint: Patient states: right mid back and flank pain x5 days. Sometimes ttb radiates to upper back with breathing. Denies injury. No GI/ symptoms. Right sided ear pain as well. Occasional cough. Acute neurological deficits are not present. Mechanism of Injury: No Mechanism of Injury. Adult Sepsis Screening: The patient does not have new or worsening altered mentation. Patient's respiratory rate is less than 22. Systolic blood pressure is greater than 100. Patient has a qSOFA score of 0- Negative Sepsis Screen. Suicide/Homicide risk assessment- the patient denies having any suicidal and/or homicidal ideations and does not present with any other emotional, behavioral or mental health complaints. Status: Patient is not a service administrator or dependent. Transition of care: patient was not received from another setting of care. 22:29 Acuity: LISSETTE Level 4 ttb 22:29 Method Of Arrival: Walkin/Carried/Asstd ttb Triage Assessment: 22:31 General: Appears in no apparent distress, well nourished, well groomed. Pain: Location: ttb right mid back/flank. HIV screening NA for this visit Offered previously. Neurological: Level of Consciousness is awake, alert. Cardiovascular: Chest pain is denied. Respiratory: Airway is patent Respiratory effort is even, unlabored, Reports pain with cough pain with respiration the patient has mild shortness of breath Denies shortness of breath labored breathing. GI: Denies nausea, vomiting, pain. : Denies burning with urination, urinary frequency, urgency. Derm: Skin is normal. Musculoskeletal: Range of motion intact in all extremities. Historical: - Allergies: no known allergies; - Home Meds: 1. none - PMHx: Asthma; - PSHx: none; - Social history: Smoking status: Patient uses tobacco products, current every day smoker. Patient/guardian denies using alcohol, street drugs, No barriers to communication noted, The patient speaks fluent Yi, Speaks appropriately for age. - Family history: Not pertinent. - : The pt / caregiver states he / she is not on anticoagulants. Home medication list is obtained from the patient. - Exposure Risk Screening:: None identified. Screenin:41 Screening information is obtained from the patient. Fall risk: No risks identified. mcp Assistance ADL's: requires no assistance with activities of daily living. Abuse/DV Screen: The patient / caregiver reports he/she is: not in a situation that causes fear, pain or injury. Nutritional screening: No deficits noted. Advance Directives: Currently, there is no health care proxy. There is no active DNR order. There is no Power of Ship Boss. home support is adequate. Assessment: 23:36 General: Appears in no apparent distress, comfortable, Behavior is appropriate for age, nn1 cooperative. Respiratory: Airway is patent Respiratory effort is even, unlabored, Respiratory pattern is regular, symmetrical. Musculoskeletal: Circulation, motion, and sensation intact Capillary refill < 3 seconds Range of motion intact in all extremities. Vital Signs: 22:27 BP 152 / 76; Pulse 105; Resp 16; Temp 99.7(O); Pulse Ox 96% on R/A; Weight 113.4 kg; sew Height 5 ft. 6 in. (167.64 cm); Pain 5/10; 23:34 BP 142 / 84; Pulse 91; Resp 18; Temp 99.2; Pulse Ox 99% on R/A; mcp 22:27 Body Mass Index 40.35 (113.40 kg, 167.64 cm) [facility] [place] Vitals: 22:27 Log In Time: May 12, 2016 at 22:25. [facility] ED Course: 22:27 Patient visited by Chani Henson. sew 22:27 NO PRIMARY PHYSICIAN, . is Private Physician. sew 22:27 Patient moved to Waiting sew 22:28 Patient visited by Chani Henson. sew 22:28 Patient moved to Pre RCE sew 22:31 Triage Initiated ttb 23:08 Peter Hoang RPA-C is PHCP. ck7 23:08 Hao Sheriff DO is Attending Physician. ck7 23:08 Patient moved to Triage 1 mcp 23:16 Patient visited by Peter Hoang RPA-C. ck7 23:36 [facility] is Referral Physician. ck7 23:41 The patient / caregiver is instructed regarding the plan of care and ED course. Patient mcp has correct armband on for positive identification. Bed in low position. Call light in reach. 23:41 No IV's were initiated during this patient's visit. No procedures done that require mcp assistance. 23:55 Patient name changed from Rubinsky\S\\S\Anshul\S\ to Rubinsky\S\Segundo\S\Anshul. EDMS 05/13 00:03 [facility] [place] Payment Agreement was scanned into [employer] and attached to record. pm4 11:00 T-Sheet-- Draft Copy was scanned into [employer] and attached to record. gb Administered Medications: 05/12 23:36 Drug: Methocarbamol 1 grams [methocarbamol 500 mg tablet (2 tabs)] Route: PO; nn1 23:36 Drug: Ibuprofen 600 mg [ibuprofen 600 mg tablet (1 tabs)] Route: PO; nn1 Order Results: There are currently no results for this order. Outcome: 23:37 Discharge ordered by Provider. ck7 23:41 Discharge Assessment: patient administered narcotics - no. The following High Risk mcp Discharge criteria are identified: None. Discharged to home ambulatory. Condition: stable. Discharge instructions given to patient, Instructed on discharge instructions, follow up and referral plans. medication usage, Demonstrated understanding of instructions, medications, Pt was receptive of discharge instructions/ teaching. Prescriptions given X 2. No special radiology studies were completed. Property sent home with patient. 23:42 Patient left the ED. [facility] Signatures: [facility] Lucinda Rudolph, RN RN [facility] Veronica Conroy, Reg Reg gb Peter Hoang, RPA-C RPA-Cck7 Chani Henson Teresa RN RN daveb Akosua ButlerRN RN nn1 Cong Matta, Reg Reg pm4 Chart Complete MTDD
--- NOTE | 2016-05-15 00:43 | EDDOCDS ---
Physician Documentation [facility] Name: Michi Landers Age: 21 yrs Sex: Male : 1995 Arrival Date: 05/12/2016 Time: 22:25 Bed Triage 1 Private MD: NO PRIMARY PHYSICIAN, . Disposition: 05/12/16 23:37 Discharged to Home/Self Care. Impression: Strain of muscle and tendon of thorax - RIGHT. - Condition is Stable. - Discharge Instructions: Muscle Strain. - Prescriptions for Ibuprofen 600 mg Oral Tablet - take 1 tablet by ORAL route every 6 hours As needed take with food; 30 tablet. Robaxin 500 mg Oral Tablet - take 2 tablet by ORAL route every 6 hours As needed; 40 tablet. - Medication Reconciliation, Local Pharmacy Hours form. - Follow up: [facility]; When: 2 - 3 days; Reason: Recheck today's complaints, Continuance of care. - Problem is new. - Symptoms have improved. - Notes: USE MEDICATIONS INSTRUCTED, FOLLOW UP WITH THE GRADUATE MEDICAL PROGRAM, RETURN TO THE ER IF THE SYMPTOMS WORSEN OR BECOME CONCERNING Historical: - Allergies: no known allergies; - Home Meds: 1. none - PMHx: Asthma; - PSHx: none; - Social history: Smoking status: Patient uses tobacco products, current every day smoker. Patient/guardian denies using alcohol, street drugs, No barriers to communication noted, The patient speaks fluent Turkmen, Speaks appropriately for age. - Family history: Not pertinent. - : The pt / caregiver states he / she is not on anticoagulants. Home medication list is obtained from the patient. - Exposure Risk Screening:: None identified. Vital Signs: 05/12 22:27 BP 152 / 76; Pulse 105; Resp 16; Temp 99.7(O); Pulse Ox 96% on R/A; Weight 113.4 kg / sew 250 lbs; Height 5 ft. 6 in. (167.64 cm); Pain 5/10; 23:34 BP 142 / 84; Pulse 91; Resp 18; Temp 99.2; Pulse Ox 99% on R/A; mcp 22:27 Body Mass Index 40.35 (113.40 kg, 167.64 cm) sew MDM: 23:31 Methocarbamol 1 grams PO once ordered. ck7 23:31 Ibuprofen 600 mg PO once ordered. ck7 23:33 Financial registration complete. pm4 05/13 00:03 [facility] [place] Payment Agreement was scanned into [employer] and attached to record. pm4 11:00 T-Sheet-- Draft Copy was scanned into [employer] and attached to record. gb Administered Medications: 05/12 23:36 Drug: Methocarbamol 1 grams [methocarbamol 500 mg tablet (2 tabs)] Route: PO; nn1 23:36 Drug: Ibuprofen 600 mg [ibuprofen 600 mg tablet (1 tabs)] Route: PO; nn1 Signatures: Lucinda Rudolph, RN RN mcp Veronica Conroy, Reg Reg gb Peter Hoang, RPA-C RPA-Cck7 Danyelle Frances RN RN ttb Cong Matta, Reg Reg pm4 Akosua Butler RN nn1 The chart was reviewed and I authenticate all verbal orders and agree with the evaluation and treatment provided.Attachments: 05/13 00:03 [facility] [place] Payment Agreement pm4 11:00 T-Sheet-- Draft Copy gb Chart Complete MTDD
== END 2016-05-12 23:42 | disposition home or self-care (01) ==
LOC: M ED 22:25
DX: S29.012A Strain of muscle and tendon of back wall of thorax, initial encounter (principal); J45.909 Unspecified asthma, uncomplicated; Z72.0 Tobacco use; X58.XXXA Exposure to other specified factors, initial encounter; Y92.89 Other specified places as the place of occurrence of the external cause; Y93.89 Activity, other specified; Y99.9 Unspecified external cause status